=== PATIENT | female | born 1960 | race Caucasian/White ===

== ENCOUNTER 2023-11-30 22:58 | Inpatient (IN) | payer MEDICARE, MEDICAID ==
[~2023-11-30] VITALS: Ht 165.1 cm; Wt 68.0 kg
[2023-11-30 23:47] LABS: BASOPHILS % (AUTO) 0.2 % (0-1); EOSINOPHILS % (AUTO) 0 % (0-6); HEMATOCRIT 41.6 % (35.0-45.0); HEMOGLOBIN 14.1 g/dl (12.0-16.0); LYMPHOCYTES # (AUTO) 0.5 X10'3 (1.1-4.8); LYMPHOCYTES % (AUTO) 7.5 % (21-51); MEAN CORPUSCULAR HEMOGLOBIN 31.9 PG (27.0-31.0); MEAN CORPUSCULAR VOLUME 94.1 FL (78-98); MEAN PLATELET VOLUME 9.4 FL (7.4-10.4); MONOCYTES # (AUTO) 0.6 X10'3 (0-0.9); NEUTROPHILS % (AUTO) 84.3 % (42-75); PLATELET COUNT 189 X10'3 (140-440); RED BLOOD COUNT 4.42 X10'6 (4.20-5.60); RED CELL DISTRIBUTION WIDTH 13.6 % (11.5-14.5); WHITE BLOOD COUNT 7.1 X10'3 (4.5-11.0)
[2023-11-30] MEDS ORDERED: MIRT7.5T11 PO (23:51)
[2023-11-30] MEDS ORDERED: SIMV-42 PO (23:51)
[2023-11-30] MEDS ORDERED: NABU-139 PO (23:51)
[2023-11-30] MEDS ORDERED: PHEN37.58 PO (23:51)
[2023-11-30] MEDS ORDERED: BACL20TA (23:51)
[2023-11-30] MEDS ORDERED: LISI10TA27 PO (23:51)
[2023-11-30] MEDS ORDERED: TRAM50TA2 PO (23:51)
[2023-11-30] MEDS ORDERED: ONDA-103 (23:51)
[2023-11-30] MEDS ORDERED: DULO60CA65 PO (23:51)
[2023-11-30] MEDS ORDERED: ESTR1TAB28 PO (23:51)
[2023-11-30] MEDS ORDERED: GLAT40SY3 SUBCUT (23:51)
[2023-11-30] MEDS ORDERED: GABA300T28 (23:51)
[2023-11-30 23:53] LABS: PROTHROMBIN TIME 10.3 SECONDS (9.0-12.0)
[2023-11-30 23:59] LABS: ALBUMIN 3.2 G/DL (3.4-5.0); ANION GAP 5 (8-16); BLOOD UREA NITROGEN 8 MG/DL (7-18); BUN/CREATININE RATIO 8.8 (10.0-20.0); CALCIUM 9.4 MG/DL (8.5-10.1); CHLORIDE 106 MMOL/L (99-107); CREATININE 0.91 MG/DL (0.40-0.90); GLUCOSE 98 MG/DL (70-104); POTASSIUM 4.4 MMOL/L (3.5-5.1); SODIUM 141 MMOL/L (135-145); TOTAL CARBON DIOXIDE 29.9 MMOL/L (24-32); eCRCL 58 ML/MIN; eGFR 63 ML/MIN
[2023-12-01] VITALS (7 sets, daily range): BP systolic 138–154; BP diastolic 77–88; PULSE 67–78; RESP 13–18; TEMP 97.3–98.4; O2SAT 94–98
[2023-12-01] MEDS ORDERED: magnesium 4gm in 100ml NS 100 ML IV PRN (02:05)
[2023-12-01] MEDS ORDERED: magnesium hydroxide 30ml (MOM) UD suspension PO PRN (02:05)
[2023-12-01] MEDS ORDERED: potassium Cl 20 mEq SR tablet PO PRN ×2 (02:05)
[2023-12-01] MEDS ORDERED: mag hydrox/Alum hydrox/simeth 30ml oral suspension PO PRN (02:05)
[2023-12-01] MEDS ORDERED: acetaminophen 325mg tablet PO PRN ×2 (02:05)
[2023-12-01] MEDS ORDERED: magnesium 2GM in 50ml NS 50 ML IV PRN (02:05)
[2023-12-01] MEDS ORDERED: HYDROcodone/acetaminophen 10/325mg tab PO PRN ×2 (02:05→19:25)
[2023-12-01] MEDS ORDERED: potassium Cl 40MEQ/1/2NS 520ml 520 ML IV PRN (02:05)
[2023-12-01] MEDS ORDERED: regadenoson 0.4mg/5ml syringe IV PRN (02:45)
[2023-12-01] MEDS ORDERED: aminophylline 250mg/10ml inj. IV PRN (02:45)
[2023-12-01] MEDS ORDERED: metoprolol tartrate 1mg/ml inj IV PRN (02:45)
[2023-12-01] MEDS ORDERED: nitroGLYCERIN 0.4mg SUBLingual tab SL PRN ×2 (02:45→19:25)
[2023-12-01] MEDS: normal saline 1000ml 1,000 ML IV SCH ×2 (03:01→19:20)
[2023-12-01 03:06] LABS: BILIRUBIN,URINE NEGATIVE (Neg); CLARITY,URINE CLEAR (Clear); COLOR,URINE YELLOW (Yellow); GLUCOSE, URINE NEGATIVE (Neg); KETONES,URINE NEGATIVE (Neg); LEUKOCYTE ESTERASE ,URINE NEGATIVE (Neg); NITRITES, URINE NEGATIVE (Neg); OCCULT BLOOD,URINE NEGATIVE (Neg); PROTEIN,URINE NEGATIVE (Neg); UROBILINOGEN,URINE 0.2 E.U/dL (0.2-1.0)
[2023-12-01 03:20] LABS: UA COLLECTION TYPE CLN CATCH MIDSTREAM
[2023-12-01] MEDS: zolpidem 5mg tablet PO ONE (03:30)
[2023-12-01] MEDS: heparin 25,000 UNIT/250ml bag 250 ML IV PRN (04:05)
[2023-12-01] MEDS: heparin 10,000 units/1 ML INJ IV ONE (04:06)
[2023-12-01] MEDS: duloxetine 30mg CAPSULE.DR PO SCH (08:00)
[2023-12-01] MEDS: K and/or MAG REPLACEMENT MC SCH (08:00)
[2023-12-01] MEDS ORDERED: heparin, porcine 5000 units/ml vial SQ SCH (08:00)
[2023-12-01] MEDS: traMADol 50MG tablet PO SCH (08:00)
[2023-12-01] MEDS: PERFLUTREN PROTEIN-A MICROSPHR (Optison) 0.22 MG/ML 3ML VIAL IV ONE (08:15)
[2023-12-01 08:43] LABS: BASOPHILS % (AUTO) 0.3 % (0-1); EOSINOPHILS % (AUTO) 0 % (0-6); HEMATOCRIT 43.8 % (35.0-45.0); HEMOGLOBIN 14.9 g/dl (12.0-16.0); LYMPHOCYTES # (AUTO) 0.5 X10'3 (1.1-4.8); LYMPHOCYTES % (AUTO) 9.9 % (21-51); MEAN CORPUSCULAR HEMOGLOBIN 32.1 PG (27.0-31.0); MEAN CORPUSCULAR HGB CONC 33.9 g/dL (33.0-36.5); MEAN CORPUSCULAR VOLUME 94.6 FL (78-98); MEAN PLATELET VOLUME 9.3 FL (7.4-10.4); MONOCYTES # (AUTO) 0.2 X10'3 (0-0.9); MONOCYTES % (AUTO) 5.1 % (2-12); NEUTROPHILS # (AUTO) 4.1 X10'3 (1.8-7.7); NEUTROPHILS % (AUTO) 84.7 % (42-75); PLATELET COUNT 171 X10'3 (140-440); RED BLOOD COUNT 4.63 X10'6 (4.20-5.60); RED CELL DISTRIBUTION WIDTH 13.7 % (11.5-14.5); WHITE BLOOD COUNT 4.9 X10'3 (4.5-11.0)
[2023-12-01 09:45] LABS: MAGNESIUM 1.9 MG/DL (1.5-2.4)
[2023-12-01 09:48] LABS: POTASSIUM 4.5 MMOL/L (3.5-5.1)
[2023-12-01 10:22] LABS: APTT 40 SECONDS (22-32); PROTHROMBIN TIME 10.6 SECONDS (9.0-12.0)
[2023-12-01] MEDS: heparin 10,000 units/1 ML INJ IV PRN (10:59)
[2023-12-01] MEDS ORDERED: famotidine 20mg tablet PO ONE (11:15)
[2023-12-01] MEDS ORDERED: diphenhydrAMINE 50 mg/ml inj IV ONE (11:15)
[2023-12-01] MEDS ORDERED: prednisone 10mg tablet PO ONE (11:15)
[2023-12-01] MEDS: lisinopril 10 MG tablet PO SCH (11:29)
[2023-12-01] MEDS: atorvastatin 10mg tablet PO SCH (11:29)
[2023-12-01] MEDS: ondansetron/PF 4mg/2ml inj IV PRN (11:32)
[2023-12-01] MEDS: diphenhydrAMINE 25mg capsule PO ONE (12:34)
[2023-12-01] MEDS: predniSONE 20 mg tablet PO ONE (12:34)
[2023-12-01] MEDS ORDERED: midazolam 1 mg/ML 2ml injection ONE ×2 (16:20→18:37)
[2023-12-01] MEDS ORDERED: iohexol 350 MG/ML 50ML vial IV ONE ×2 (16:20→18:19)
[2023-12-01] MEDS ORDERED: iohexol 350MG/ML 100ml bottle IV ONE ×2 (16:20→18:34)
[2023-12-01] MEDS ORDERED: LIDOcaine 1% 30ml preserv. free vial ONE (16:20)
[2023-12-01] MEDS ORDERED: hydrocortisone sod succ/PF 100mg/2ml inj. ONE (16:20)
[2023-12-01] MEDS ORDERED: fentaNYL/PF 50MCG/1 ML 2ML syringe ONE ×2 (16:20→18:23)
[2023-12-01] MEDS ORDERED: ondansetron/PF 4mg/2ml inj IV PRN (19:20)
[2023-12-01] MEDS ORDERED: HYDROcodone/acetaminophen 5mg/325mg tablet PO PRN (19:25)
[2023-12-01] MEDS ORDERED: proCHLORperazine 10 MG/2 ml inj IV PRN (19:25)
[2023-12-01] MEDS ORDERED: OXAZEpam 15mg capsule PO PRN (19:25)
[2023-12-01] MEDS: HYDROcodone/acetaminophen 5mg/325mg tablet PO PRN (21:39)
[2023-12-01] MEDS: mirtazapine 15mg tablet PO SCH (21:39)
[2023-12-02 02:45] VITALS: BP 120/55; PULSE 75; RESP 14; TEMP 97.2; O2SAT 98
[2023-12-02 07:00] VITALS: BP 136/79; PULSE 68; RESP 18; TEMP 98.2; O2SAT 97
[2023-12-02 08:37] LABS: BASOPHILS % (AUTO) 0.1 % (0-1); EOSINOPHILS % (AUTO) 0 % (0-6); HEMATOCRIT 39.5 % (35.0-45.0); HEMOGLOBIN 13.4 g/dl (12.0-16.0); LYMPHOCYTES % (AUTO) 11.9 % (21-51); MEAN CORPUSCULAR HEMOGLOBIN 31.7 PG (27.0-31.0); MEAN CORPUSCULAR VOLUME 93.2 FL (78-98); MEAN PLATELET VOLUME 9.3 FL (7.4-10.4); MONOCYTES # (AUTO) 0.8 X10'3 (0-0.9); MONOCYTES % (AUTO) 9.1 % (2-12); NEUTROPHILS # (AUTO) 6.8 X10'3 (1.8-7.7); NEUTROPHILS % (AUTO) 78.9 % (42-75); PLATELET COUNT 201 X10'3 (140-440); RED BLOOD COUNT 4.24 X10'6 (4.20-5.60); RED CELL DISTRIBUTION WIDTH 13.4 % (11.5-14.5); WHITE BLOOD COUNT 8.6 X10'3 (4.5-11.0)
[2023-12-02 09:03] LABS: ANION GAP 10 (8-16); BLOOD UREA NITROGEN 9 MG/DL (7-18); BUN/CREATININE RATIO 12.9 (10.0-20.0); CALCIUM 9.2 MG/DL (8.5-10.1); CHLORIDE 108 MMOL/L (99-107); GLUCOSE 103 MG/DL (70-104); MAGNESIUM 1.4 MG/DL (1.5-2.4); PHOSPHORUS 2.8 MG/DL (2.3-4.5); POTASSIUM 3.8 MMOL/L (3.5-5.1); SODIUM 141 MMOL/L (135-145); TOTAL CARBON DIOXIDE 23.5 MMOL/L (24-32); eCRCL 76 ML/MIN; eGFR 85 ML/MIN
[2023-12-02] MEDS: magnesium Cl slow-release 64mg tablet PO PRN (10:18)
[2023-12-02] MEDS ORDERED: NITR0.4T51 SL (11:41)
[2023-12-02] MEDS ORDERED: NICO1PAT36 TOP (11:41)
[2023-12-02] MEDS ORDERED: ASPI81TA52 PO (11:41)
[2023-12-02 11:56] VITALS: BP 158/84; PULSE 70; RESP 20; TEMP 97.7; O2SAT 97
== END 2023-12-02 13:23 | disposition home or self-care (01) | DRG 281 ==
LOC: ER 22:59 → ED HOLD 23:54 → EDBEDREQ 12-01 02:54 → PCU 3S 12-01 03:12
PROVIDERS: ADMIT Internal Medicine Critical Care Medicine; ATTEND Family Medicine
PROC: 4A023N7 Measurement of Cardiac Sampling and Pressure, Left Heart, Percutaneous Approach (ICD-10-PCS; principal; 2023-12-01)
PROC: B2111ZZ Fluoroscopy of Multiple Coronary Arteries using Low Osmolar Contrast (ICD-10-PCS; 2023-12-01)
PROC: B2151ZZ Fluoroscopy of Left Heart using Low Osmolar Contrast (ICD-10-PCS; 2023-12-01)
PROC: B41F1ZZ Fluoroscopy of Right Lower Extremity Arteries using Low Osmolar Contrast (ICD-10-PCS; 2023-12-01)
PROC: B3101ZZ Fluoroscopy of Thoracic Aorta using Low Osmolar Contrast (ICD-10-PCS; 2023-12-01)
DX: I21.4 Non-ST elevation (NSTEMI) myocardial infarction (principal); I25.3 Aneurysm of heart; G35 Multiple sclerosis; I20.0 Unstable angina; I10 Essential (primary) hypertension; E78.00 Pure hypercholesterolemia, unspecified; F17.210 Nicotine dependence, cigarettes, uncomplicated; M06.9 Rheumatoid arthritis, unspecified; Z79.899 Other long term (current) drug therapy; Z91.041 Radiographic dye allergy status; Z91.048 Other nonmedicinal substance allergy status; Z90.710 Acquired absence of both cervix and uterus; Z90.49 Acquired absence of other specified parts of digestive tract; L72.3 Sebaceous cyst
CPT/HCPCS: 36415; 80048; 81003; 83605; 83735; 84100; 84132; 84484; 85025; 85610; 85730; 87040; 87081; 93005; 93306; 93458; 97116; 97161; 97530; 99152; 99153; 99291; 99292; A6258; C1760; G0378; J1644; J1720; J2250; J2405; J3010; J3490; J7030; J7512; Q0163; Q9967

== ENCOUNTER 2025-02-28 09:21 | Day surgery (SDC) | payer MEDICARE, MEDICAID ==
--- NOTE | 2025-02-26 15:11 | ELECTROCARDIOGRAPH REPORT ---
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 Michelle Lynch Measurements Intervals Cinebar Rate: 63 P: 86 ID: [id number] QRS: 80 QRSD: 83 T: 71 QT: 369 QTc: 378 Interpretive Statements Sinus rhythm Electronically Signed On 02-26-2025 18:26:[address] Michelle Lynch Please click the below link to view image of tracing.
[2025-02-26 15:18] LABS: BASOPHILS % (AUTO) 0.6 % (0-1); EOSINOPHILS % (AUTO) 0 % (0-6); LYMPHOCYTES # (AUTO) 1.2 X10'3 (1.1-4.8); LYMPHOCYTES % (AUTO) 22.2 % (21-51); MEAN CORPUSCULAR HEMOGLOBIN 32.6 PG (27.0-31.0); MEAN CORPUSCULAR VOLUME 95.8 FL (78-98); MONOCYTES # (AUTO) 0.5 X10'3 (0-0.9); MONOCYTES % (AUTO) 10.3 % (2-12); NEUTROPHILS # (AUTO) 3.5 X10'3 (1.8-7.7); NEUTROPHILS % (AUTO) 66.9 % (42-75); PRE OP HEMATOCRIT 40.3 % (35.0-45.0); PRE OP HEMOGLOBIN 13.7 g/dL (12.0-16.0); PRE OP PLATELET COUNT 172 X10'3 (140-440); PRE OP WHITE BLOOD COUNT 5.2 10'3 (4.8-10.8); RED BLOOD COUNT 4.21 X10'6 (4.20-5.60)
[2025-02-26 15:40] LABS: PRE OP PROTIME 10.2 SECONDS (9.0-12.0)
[2025-02-26 16:09] LABS: ALBUMIN 3.9 G/DL (3.4-5.0); ALBUMIN/GLOBULIN RATIO 1.3 (1.1-1.5); ALKALINE PHOSPHATASE 78 IU/L (46-116); BLOOD UREA NITROGEN 13 MG/DL (7-18); BUN/CREATININE RATIO 13.4 (10.0-20.0); CALCIUM 10.3 MG/DL (8.5-10.1); CHLORIDE 106 MMOL/L (99-107); CREATININE 0.97 MG/DL (0.40-0.90); PRE OP ALT 33 U/L (30-65); PRE OP ANION GAP 7 (8-16); PRE OP AST 21 U/L (10-37); PRE OP BILIRUB, TOTAL 0.4 MG/DL (0.0-1.0); PRE OP GLUCOSE 93 MG/DL (70-104); PRE OP POTASSIUM 3.9 MMOL/L (3.4-5.1); PRE OP SODIUM 140 MMOL/L (135-145); TOTAL CARBON DIOXIDE 26.8 MMOL/L (24-32); eGFR 58 ML/MIN
[2025-02-28] VITALS (9 sets, daily range): BP systolic 115–147; BP diastolic 62–83; PULSE 59–82; RESP 11–16; TEMP 96.8; O2SAT 94–99
[~2025-02-28] VITALS: Ht 165.1 cm; Wt 73.4 kg
[~2025-02-28 09:21] MED LIST: ACET-1008 PO; ASPI-611 PO; BACL20TA PO; CHOL10006 PO; DULO60CA65 PO; GABA-535 PO; GLAT40SY3 SUBCUT; HYDR-3973 PO; LISI10TA27 PO; MIRT7.5T11 PO; MVI; NABU-139 PO; NITR0.4T48 SL; ONDA-103 PO; SIMV-42 PO
[2025-02-28] MEDS ORDERED: methylene blue (5mg/ml) 50mg/10ml ampul IV ONE (10:01)
[2025-02-28] MEDS ORDERED: LIDOcaine 1% (10mg/ml)w/preservative inj. 20ml MDV ONE (10:01)
[2025-02-28] MEDS ORDERED: BUPIVAcaine/PF 2.5mg/ml (0.25%) 10ml vial ONE (10:01)
[2025-02-28] MEDS ORDERED: BUPIVACAINE liposomal/PF 13.3 MG/ML 10mL vial IM ONE (10:01)
[2025-02-28] MEDS: famotidine 20mg tablet PO ONE (10:08)
[2025-02-28] MEDS: ringers solution, lacted 1,000 ML IV SCH (10:09)
[2025-02-28] MEDS ORDERED: ceFAZolin 2gm/dext,iso 50mL 50 ML IV ONE (10:15)
[2025-02-28] MEDS ORDERED: sevoflurane 250ml liquid IH ONE (10:22)
[2025-02-28] MEDS ORDERED: fentaNYL/PF 50MCG/1 ML 2ML syringe ONE ×2 (10:27→11:28)
[2025-02-28] MEDS ORDERED: midazolam 1 mg/ML 2ml injection ONE (10:29)
[2025-02-28] MEDS ORDERED: propofol inj 20 ML IV ONE (10:29)
[2025-02-28] MEDS ORDERED: ondansetron/PF 4mg/2ml inj ONE (10:59)
[2025-02-28] MEDS ORDERED: dexamethasone sod phosphate 4mg/ml inj. ONE (11:00)
[2025-02-28] MEDS ORDERED: morphine 4 MG/ML inj SYRINge IV PRN (11:15)
[2025-02-28] MEDS ORDERED: hydrALAZINE 20mg/ml inj. IV PRN (11:15)
[2025-02-28] MEDS ORDERED: labetalol 20mg/4ml (5mg/ml) syringe IV PRN (11:15)
[2025-02-28] MEDS ORDERED: morphine 2 MG/ML inj. syringe IV PRN (11:15)
[2025-02-28] MEDS ORDERED: ondansetron/PF 4mg/2ml inj IV PRN (11:15)
[2025-02-28] MEDS ORDERED: HYDROmorphone/PF 0.2 MG/ML SYRINGE IV PRN ×2 (11:15)
[2025-02-28] MEDS ORDERED: ringers solution, lacted 1,000 ML IV SCH (11:15)
[2025-02-28] MEDS ORDERED: acetaminophen 1,000mg/100ml IV 100 ML IV ONE (11:57)
--- NOTE | 2025-02-28 12:31 | OPERATIVE REPORT ---
Operative Report Providers to CC: YANDY JACKSON DO ~ Date of Procedure: Feb 28, 2025 Pre-Operative Diagnosis: Left breast cancer and acquired cavity defect Post-Operative Diagnosis SAME as PRE-Op Procedure Performed Left breast wire localized lumpectomy and left axillary sentinel lymph node biopsy and closure of acquired defect with oncoplastic technique Surgeon: Dr. Yandy Jackson Backrest Assembler health care sanitary technician Anesthesiologist: Octavio Steele Type of Anesthesia: General Findings: left axillary sentinel lymph node Complications None Prosthetics\Implants used: None Estimated Blood Loss: Less than 5 mL Specimen Removed: #1 Left axillary sentinel lymph node 1. Hot only, #2 left axillary nonsentinel lymph node, #3 left breast wire localized lumpectomy Description of Procedure: MARY IS A 65-YEAR-OLD FEMALE who was diagnosed with left breast invasive ductal cancer. She was referred to me for surgical management. She had a nuclear medicine injection at [facility] this morning followed by the wire localization placement this morning at [facility] advanced imaging. She was seen in the preoperative holding area by myself and the anesthesiologist. The left shoulder was marked with my initials. She was taken to the operative suite and placed on table in supine position with the arms extended. She had previously had SCDs in place, an IV, and IV antibiotics administered prior to incision. General anesthesia was administered with an LMA. The left breast bandages were removed and the wire was identified. 3 mm of methylene blue dye was injected at the 3 o'clock position subareolar massaged for 4 minutes. The gamma probe was used to identify the hot spot in the breast and the lower left axilla. The patient was prepped and draped in a sterile fashion a time-out was performed and agreed upon. A horizontal proposed incision was made superior to the areola. 1% lidocaine was injected at the site of the incision was made with a 15 blade. Manjeet retractors were placed at the edges of the cavity as I dissected through the deep layer of the incision and the wire was pulled into the cavity. I switched to Fink retractors and dissected around the wire and the tissue which was completely excised. Specimen was removed from the cavity and oriented with short stitch superior, long suture lateral, double suture deep. It was placed in the specimen radiograph board and placed off the field in the fact that trauma machine where the marker was identified in the middle of the specimen. Two views were taken. The specimen was then put in formalin for permanent evaluation. I turned my attention to the left axillary sentinel lymph node biopsy. Proposed incision was made in the lower axilla with a marking pen and 1% lidocaine was injected at the site. The incision was made with a 15 blade in a further dissected through the axillary fascia. Fink retractors were placed in the cavity and I dissected further into the left axilla. The hot signal was identified. The node was grasped with a tonsil clamp and completely excised with cautery and the LigaSure. It was removed from the cavity had a hot count of 648, it was not blue. This placed off the field in formalin. I re- scanned the left axilla for hot activity it was variable ranging free between the 3rd and 40s but nothing that was significant. The cavity was irrigated and hemostasis was achieved with Bovie electrocautery. The axillary fascia was closed with 3-0 Vicryl suture and the skin was closed with 3-0 Vicryl suture and 4-0 Monocryl running subcuticular stitch. The breast cavity measured by 10 cm x 4 cm x 5 cm. The medial and lateral aspects of the cavity were dissected free to create flaps for reapproximation of the cavity. Hemostasis was achieved with Bovie electrocautery. Once both flaps were freed for approximation hemoclips was sprayed in the cavity and a soaked sponge was placed into the cavity and pressure was held for 3 minutes. The sponge was removed and there was no evidence of bleeding, hemostasis was achieved. The two medial and lateral pedicles were reapproximated with 3-0 Vicryl aury suture to approximate the defect. The skin was closed with 3-0 Vicryl suture and a 4-0 Monocryl running subcuticular stitch. Dermabond glue was placed on the skin and 0.25% Marcaine mixed with Exparel 50% each was injected at both surgical sites. Bandages and pressure dressings were placed over the incisions and a breast binder the patient tolerated the procedure well and she was taken to recovery in stable condition. Counts repoted as correct: Yes YANDY JACKSON DO Feb 28, 2025 12:31
[2025-02-28] MEDS: LIDOcaine 1% 30ml preserv. free vial IJ ONE (12:37)
[2025-02-28] MEDS: HYDROcodone/acetaminophen 5mg/325mg tablet PO ONE (12:50)
== END 2025-02-28 13:31 | disposition home or self-care (01) ==
LOC: PAS 09:21
PROVIDERS: ATTEND Surgery
DX: C50.212 Malignant neoplasm of upper-inner quadrant of left female breast (principal); I10 Essential (primary) hypertension; I25.10 Atherosclerotic heart disease of native coronary artery without angina pectoris; F41.9 Anxiety disorder, unspecified; F32.A Depression, unspecified; F17.210 Nicotine dependence, cigarettes, uncomplicated; I25.2 Old myocardial infarction; F12.90 Cannabis use, unspecified, uncomplicated; Z88.8 Allergy status to other drugs, medicaments and biological substances; Z98.890 Other specified postprocedural states; Z79.899 Other long term (current) drug therapy; Z79.01 Long term (current) use of anticoagulants; Z91.041 Radiographic dye allergy status; Z88.6 Allergy status to analgesic agent; Z90.710 Acquired absence of both cervix and uterus
CPT/HCPCS: 19125; 38525; 38792; 76098; 80053; 85025; 85610; 85730; 93005; A4215; A4618; A6258; A6402; A6449; A7000; J0131; J0666; J1100; J2003; J2250; J2405; J2704; J3010; J3490; J7030; J7120; Q9968; Z7506; Z7508; Z7512; Z7610; 88305; 88307; 88342